=== PATIENT | female | born 1990 | race African-American/Black ===

== ENCOUNTER 2018-07-23 19:40 | Inpatient (IN) | payer OTHER ==
[2018-07-23] MEDS ORDERED: PROMETHAZINE HCL 25 MG/1 ML VIAL IVPUSH ONE (20:25)
[2018-07-23] MEDS ORDERED: BUTORPHANOL TARTRATE 1 MG/ML VIAL IVPB ONE (20:25)
[2018-07-23 20:29] VITALS: BMI 30.4
[2018-07-23 20:29] LABS: BASO % 0.5 % (0-2.0); EOS % 2.6 % (0-4.5); HEMOGLOBIN 10.7 GM/dL (10.7-15.3); MCH 28.3 pg (25.7-33.7); MCHC 33.4 g/dl (32.0-36.0); MEAN CELL VOLUME 84.5 fl (80-96); MONO % 8.8 % (3.8-10.2); NEUT % 70.1 % (42.8-82.8); PLATELET COUNT 251 K/MM3 (134-434); RBC 3.79 M/mm3 (3.60-5.2); RDW 17.7 % (11.6-15.6)
[2018-07-23] MEDS ORDERED: DEXTROSE 5%-LACTATED RINGERS 1,000 ML IV SCH (20:30)
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
[2018-07-23 20:54] LABS: INR 0.96 (0.83-1.09); PROTHROMBIN TIME (PATIENT) 11.3 SEC (9.7-13.0)
[2018-07-23 20:57] LABS: ACTIVATED PTT 26.3 SECONDS (25.2-36.5)
[2018-07-23 21:11] LABS: ANION GAP 10 MMOL/L (8-16); BLOOD UREA NITROGEN 7 mg/dL (7-18); CHLORIDE 104 mmol/L (98-107); CO2 22 mmol/L (21-32); CREATININE 0.6 mg/dL (0.55-1.3); GLUCOSE,RANDOM 86 mg/dL (74-106); POTASSIUM 4.3 mmol/L (3.5-5.1); SODIUM 136 mmol/L (136-145)
[2018-07-23] MEDS ORDERED: OXYTOCIN 30 UNITS in 0.9% NS 30 UNIT/500 ML INFUS.BAG IVPB SCH (21:15)
[2018-07-23] MEDS ORDERED: PROMETHAZINE HCL 25 MG/1 ML VIAL ONE (21:39)
[2018-07-23] MEDS ORDERED: BUTORPHANOL TARTRATE 1 MG/ML VIAL ONE ×2 (21:39)
[2018-07-23] MEDS ORDERED: OXYTOCIN 20 UNITS in 0.9% NS 20 UNIT/1,000 ML INFUS.BAG IV ONE (23:25)
[2018-07-23] MEDS ORDERED: METHYLERGONOVINE MALEATE 0.2 MG/1 ML AMP IM PRN (23:42)
[2018-07-23] MEDS ORDERED: BENZOCAINE 28 GM HEMORRHOIDAL OINTMENT TP PRN (23:42)
[2018-07-23] MEDS ORDERED: oxyCODONE HCL 5 MG TABLET PO PRN (23:42)
[2018-07-23] MEDS ORDERED: WITCH HAZEL 50% (TUCKS) 40 PAD/JAR PAD TP PRN (23:42)
[2018-07-23] MEDS ORDERED: BISACODYL 10 MG SUPP.RECT RC PRN (23:42)
[2018-07-23] MEDS ORDERED: BENZOCAINE 20% 57 GM BOTTLE TP PRN (23:42)
[2018-07-23] MEDS ORDERED: OXYTOCIN 20 UNITS in 0.9% NS 20 UNIT/1,000 ML INFUS.BAG IV SCH (23:45)
--- NOTE | 2018-07-23 23:54 | PN ---
Delivery - Delivery Vaginal Delivery: No Problems, Spontaneous (baby boy delivered vx , [place] position , cord around ant shoulder untangled before delivery of the rest of the body, oral & nasal suction was done .placenta & membranes delievered completely, perineum & vagina was intact) Episiotomy/Laceration: None EBL (cc): 300 Delivery, Single - Stages of Labor Date 1st Stage Initiatied: 07/23/18 Time 1st Stage Initiated: 09:00 Date 2nd Stage Initiated: 07/23/18 Time 2nd Stage Initiated: 23:20 Date of Delivery: 07/23/18 Time of Delivery: 23:26 Date Placenta Delivered: 07/23/18 Time Placenta Delivered: 23:30 Placenta: Yes: Spontaneous, Uterine Exploration - Condition of Infant Gender: Male Weight: 7 lb 8 oz Position: Left, OA (cord around anterior shoulder) Total Hours ROM (Hrs/Mins): 20 min SROM clear large - 1 Minute Total Score: 9 5 Minutes Total Score: 9 - Feeding Plan Initial Plan: Elected not to breastfeed exclusively throughout hospitalization Remarks - Remarks Remarks: 28 yrs , 39.1 weeks by sono & 38.4 weeks by dates , gbs neg , admitted in labor PNC at [address] [place] [address] Intrapartum stadol 2 mg + phenrgan 25 mg iv stat given for labor analgesia pitocin augmentation was started intrapartum course uneventful
[2018-07-24] MEDS ORDERED: OXYTOCIN 20 UNITS in 0.9% NS 20 UNIT/1,000 ML INFUS.BAG IV ONE (01:24)
[2018-07-24] MEDS: IBUPROFEN 600 MG TABLET (FP) PO PRN ×3 (05:54→16:06)
[2018-07-24] MEDS: ACETAMINOPHEN 325 MG TABLET (FP) PO PRN ×3 (05:55→16:07)
--- NOTE | 2018-07-24 06:35 | PN ---
Post Progress Note - Subjective Subjective: no complains Post Day: 1 Type of Delivery: Vital Signs: Vital Signs Temperature 98.9 F 07/24/18 06:00 Pulse Rate 95 H 07/24/18 06:00 Respiratory Rate 18 07/24/18 06:00 Blood Pressure 115/62 07/24/18 06:00 O2 Sat by Pulse Oximetry (%) 99 07/24/18 01:00 Breast Exam: Yes: Soft, Other (BF attempting ). No: Engorged Uterus: Yes: Fundus Firm, Fundus below umbilicus, Non-tender Lochia: Yes: Rubra Lochia, amount: Moderate Extremities: Yes: Calves non-tender Perineum: Yes: Intact Activity: Ambulating - Labs Labs: CBC WBC 10.0 K/mm3 (4.0-10.0) 07/23/18 20:10 RBC 3.79 M/mm3 (3.60-5.2) 07/23/18 20:10 Hgb 10.7 GM/dL (10.7-15.3) 07/23/18 20:10 Hct 32.0 % (32.4-45.2) L D 07/23/18 20:10 MCV 84.5 fl (80-96) 07/23/18 20:10 MCH 28.3 pg (25.7-33.7) 07/23/18 20:10 MCHC 33.4 g/dl (32.0-36.0) 07/23/18 20:10 RDW 17.7 % (11.6-15.6) H 07/23/18 20:10 Plt Count 251 K/MM3 (134-434) D 07/23/18 20:10 MPV 9.0 fl (7.5-11.1) 07/23/18 20:10 Absolute Neuts (auto) 7.0 K/mm3 (1.5-8.0) 07/23/18 20:10 Neutrophils % 70.1 % (42.8-82.8) 07/23/18 20:10 Lymphocytes % 18.0 % (8-40) D 07/23/18 20:10 Monocytes % 8.8 % (3.8-10.2) 07/23/18 20:10 Eosinophils % 2.6 % (0-4.5) D 07/23/18 20:10 Basophils % 0.5 % (0-2.0) 07/23/18 20:10 Nucleated RBC % 0 % (0-0) 07/23/18 20:10 Problem List - Problems (1) 39 weeks gestation of Code(s): Z3A.39 - 39 WEEKS GESTATION OF (2) Labor established Code(s): [id number] - (3) Anemia Code(s): D64.9 - ANEMIA, UNSPECIFIED Qualifiers: Anemia type: iron deficiency Iron deficiency anemia type: inadequate dietary iron intake Qualified Code(s): D50.8 - Other iron deficiency anemias Assessment/Plan stable pp cbc pending discharge tomorrow.
[2018-07-24 07:22] LABS: BASO % 0.8 % (0-2.0); EOS % 1.5 % (0-4.5); HEMATOCRIT 27.8 % (32.4-45.2); HEMOGLOBIN 9.2 GM/dL (10.7-15.3); LYMPH % 16.4 % (8-40); MCH 27.7 pg (25.7-33.7); MCHC 33.1 g/dl (32.0-36.0); MEAN CELL VOLUME 83.6 fl (80-96); MEAN PLT VOLUME 8.6 fl (7.5-11.1); MONO % 9.6 % (3.8-10.2); NEUT % 71.7 % (42.8-82.8); PLATELET COUNT 234 K/MM3 (134-434); RBC 3.33 M/mm3 (3.60-5.2); RDW 17.5 % (11.6-15.6); WHITE BLOOD COUNT 13.5 K/mm3 (4.0-10.0)
[2018-07-24] MEDS: FERROUS SO4 325 MG TABLET (FP) PO SCH ×2 (08:08→17:40)
[2018-07-24] MEDS: PRENATAL VITAMINS W/ FOLIC ACID TABLET (FP) PO SCH (10:18)
[2018-07-24] MEDS ORDERED: SENNOSIDES/DOCUSATE COMBO (SENNA PLUS) TABLET (UD) PO PRN (22:00)
[2018-07-25] MEDS: ACETAMINOPHEN 325 MG TABLET (FP) PO PRN ×2 (04:39→08:37)
[2018-07-25] MEDS: IBUPROFEN 600 MG TABLET (FP) PO PRN ×2 (04:39→08:36)
[2018-07-25] MEDS: FERROUS SO4 325 MG TABLET (FP) PO SCH (08:36)
[2018-07-25] MEDS: PRENATAL VITAMINS W/ FOLIC ACID TABLET (FP) PO SCH (09:29)
--- NOTE | 2018-07-25 11:20 | DS ---
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 No: Calf Tenderness Integumentary: Yes: WNL Neurological: Yes: WNL ...Motor Strength: WNL Psychiatric: Yes: WNL, Alert, Oriented Labs: CBC, BMP 07/24/18 07:00 07/23/18 20:10 Delivery - Delivery Vaginal Delivery: No Problems, Spontaneous (baby boy delivered vx , [place] position , cord around ant shoulder untangled before delivery of the rest of the body, oral & nasal suction was done .placenta & membranes delievered completely, perineum & vagina was intact) Type of Anesthesia: None Episiotomy/Laceration: None EBL (cc): 300 Delivery, Single - Stages of Labor Date 1st Stage Initiatied: 07/23/18 Time 1st Stage Initiated: 09:00 Date 2nd Stage Initiated: 07/23/18 Time 2nd Stage Initiated: 23:20 Date of Delivery: 07/23/18 Time of Delivery: 23:26 Time Placenta Delivered: 23:30 Placenta: Yes: Spontaneous, Uterine Exploration - Condition of 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 Gender: Male Weight: 7 lb 8 oz Position: Left, OA (cord around anterior shoulder) Total Hours ROM (Hrs/Mins): 20 min SROM clear large - 1 Minute Total Score: 9 5 Minutes Total Score: 9 - Feeding Plan Initial Plan: Elected not to breastfeed exclusively throughout hospitalization Remarks - Remarks Remarks: 28 yrs , 39.1 weeks by sono & 38.4 weeks by dates , gbs neg , admitted in labor PNC at [address] [place] [address] Intrapartum stadol 2 mg + phenrgan 25 mg iv stat given for labor analgesia pitocin augmentation was started intrapartum course uneventful , pp course uneventful anemia counselled discharge today Discharge Summary Reason For Visit: ADMIT-LABOR Current Active Problems 39 weeks gestation of (Acute) Anemia (Acute) Labor established (Acute) Normal spontaneous vaginal delivery (Acute) Condition: Stable - Instructions Diet, Activity, Other Instructions: Post Instructions DIET: Continue good diet high in protein, calcium, and iron rich foods. Drink at least eight (8) glasses of water daily in addition to other fluids. ___ Regular diet MEDICATIONS: Continue vitamins and iron as previously directed. Motrin and Tylenol may be taken for minor discomfort. ACTIVITY: Mild to moderate exercise may be started in two (2) weeks. Take frequent rest periods. Resume normal activity after six (6) week check up. WOUND CARE OF OPERATIVE SITE: Continue use of perineal bottle until vaginal discharge stops. Keep area clean. Shower daily. Keep abdominal wound dry. Report any drainage or redness to physician. Tub baths, tampons and douches are not permitted for [address] Breast feeding & or Bottle feeding BREAST CARE: (For those that are not ): If engorgement occurs: Wear tight fitting bra. Take Tylenol or Motrin for pain. Apply cold packs (ice in bags to each breast ) FAMILY PLANNING: There are many control alternatives to pursue and they should be discussed at your first office visit. You may resume sexual activity after your six (6) week check up. (Remember, is not a contraceptive) NEXT PHYSICIAN APPOINTMENT: Be certain to call for a four- six (4-6) week appointment, unless otherwise directed. Call Clinic or got to Emergency Dept if you have any of the following: Heavy vaginal bleeding Painful urination Leg pain Unusual odor noted to vaginal bleeding High fever Red streaking noted on breast Referrals: Ellie Amaya MD [Staff Physician] - Disposition: HOME - Home Medications Comprehensive Discharge Medication List: Ambulatory Orders Acetaminophen [Tylenol .Regular Strength -] 650 mg PO Q3H PRN tablet 03/06/19 Ferrous Sulfate [Feosol] 325 mg PO BIDWM #60 tab 07/24/18 Ibuprofen [Motrin -] 600 mg PO Q4H PRN #20 tablet 07/24/18 Vitamins ([facility]) - 1 tab PO DAILY #30 tablet 07/24/18
[2018-07-25 11:42] VITALS: BP 125/70; PULSE 94; TEMP 97.7
== END 2018-07-25 14:45 | disposition home or self-care (01) | DRG 560 ==
LOC: JLDR 19:40 → J3W 07-24 01:30
PROVIDERS: ADMIT Obstetrics & Gynecology; ATTEND Obstetrics & Gynecology
PROC: 10E0XZZ Delivery of Products of Conception, External Approach (ICD-10-PCS; principal; 2018-07-23)
DX: O99.02 Anemia complicating childbirth (principal); D64.9 Anemia, unspecified; O69.89X0 Labor and delivery complicated by other cord complications, not applicable or unspecified; Z3A.39 39 weeks gestation of pregnancy; Z37.0 Single live birth
CPT/HCPCS: 36415; 59409; 80048; 85025; 85610; 85730; 86593; 86850; 86900; 86901